=== PATIENT | female | born 1965 | race African-American/Black ===

== ENCOUNTER 2018-07-26 07:00 | Outpatient (CLI) ==
--- NOTE | 2018-07-26 09:50 | US ---
EXAM: Thyroid ultrasound History: Dysphagia. Technique: Multiple sonographic images through the thyroid gland were obtained. Color duplex Dopple r was used to interrogate vascular flow. Findings: The right lobe of the thyroid measures 5.4 cm x 2.5 cm x 1.9 cm demonstrates multiple nodules with th e largest being complex and measuring 1 cm. The thyroid isthmus measures 0.8 cm in thickness. The left lobe of the thyroid measures 7.0 cm x 3.7 cm x 3.7 cm and demonstrates a dominant complex n odule measuring 5.3 cm x 3.4 cm x 3.1 cm. No extrathyroidal masses are identified. Impression: 5.3 cm dominant complex nodule within the left thyroid lobe. Tissue sampling is recommen ded.
== END 2018-07-26 07:01 | disposition home or self-care (01) ==
LOC: RAD 07:00
PROVIDERS: ATTEND Otolaryngology
DX: R13.10 Dysphagia, unspecified (principal)